=== PATIENT | female | born 1955 | race Caucasian/White ===

== ENCOUNTER → 2016-08-25 | Day surgery (SDC) | payer OTHER ==
[2016-08-17 11:21] VITALS: Ht 162.6 cm; Wt 65.9 kg
[~2016-08-25] VITALS: Ht 162.6 cm; Wt 65.9 kg
[~2016-08-25] MED LIST: ATOR10TA82 PO; ATROPINE SULFATE 0.1 MG/ML 5ML SYR IV PRN; CLON1TAB3 PO; ENOX60IN SQ; EpHEDrine SULFATE INJ 50 MG/ML AMP IV PRN; LEVO50TA6 PO; LIDOCAINE HCL 2% 2 ML VIAL (20MG/ML) ONE; PANT40TA PO; PARO1TAB27 PO; PROPOFOL IV EMULSION 10 MG/ML 20 ML VIAL IV ONE; SODIUM CHLORIDE 0.9% 500ML 500 ML IV ONE; SOLI10TA2 PO; WARF5TAB90 PO
--- NOTE | 2016-08-25 10:35 | Endo History and Physical ---
History & Physical Date of Service: Aug 25, 2016. Chief Complaint: Screening Referring Physician: Dr. Temitope Manjarrez History of Present Illness 60 yo presenting for colonoscopy for rectal bleeding and screening On coumadin, bridged with lovenox Past Surgical History Hx Cardiac Surgery: No Hx Internal Defibrillator: Yes (PACER/DEFIB 2013 [employer]) Hx Pacemaker: Yes Hx Abdominal Surgery: Yes (TUBAL LIGATION, LAPAROSCOPY LYSIS OF ADHESIONS) Hx of Implantable Prosthesis: No Hx Post-Op Nausea and Vomiting: No Hx Cancer Surgery: No Hx Thoracic Surgery: No Hx Orthopedic: No Hx Urinary Tract Surgery: No Family History None Social History Smoking Status: Former Smoker Hx Substance Use: No Hx Alcohol Use: No Allergies Coded Allergies: No Known Allergies (Verified , 08/25/16) Current Medications Reported Home Medications Medications Dose Route/Sig Max Daily Dose Days Date Category Dose Instructions Lovenox (Enoxaparin Sodium) 60 Mg/0.6 Ml Inj 60 Mg SQ Q12H 08/25/16 Reported Coumadin (Warfarin Sodium) 5 Mg Tab 5 Mg PO HS 08/17/16 Reported HOLD PRIOR AND BRIDGE WITH LOVENOX Vesicare (Solifenacin) 10 Mg Tab 10 Mg PO QAM 08/17/16 Reported Lipitor (Atorvastatin Calcium) 10 Mg Tab 10 Mg PO QAM 08/17/16 Reported Paxil (Paroxetine HCl) 20 Mg Tab 20 Mg PO QAM 08/17/16 Reported Klonopin (Clonazepam) 1 Mg Tab 1 Mg PO QAM 08/17/16 Reported Levothyroxine Sodium 50 Mcg Tab 1.5 Tab PO QAM 08/17/16 Reported Protonix (Pantoprazole Sodium) 40 Mg Tab 40 Mg PO QAM 08/17/16 Reported Vital Signs Weight (Kilograms): 65.91 Height (Feet): 5 Height (Inches): 4 Date Time Temp Pulse Resp B/P Pulse Ox O2 Delivery O2 Flow Rate FiO2 08/25/16 09:36 36.7 90 16 106/64 97 Room Air Physical Exam General Appearance: WD/WN, no apparent distress Respiratory/Chest: Respiratory effort: no dyspnea Auscultation: breath sounds normal, CTA except as noted Cardiovascular: Apical Impulse: not displaced Heart Auscultation: RRR, normal S1, normal S2 Abdomen: Inspection & Palpation: soft, non-distended, no tenderness, guarding & rebound Assessment and Plan 60 yo presenting for colonoscopy for screening and rectal bleeding
--- NOTE | 2016-08-25 11:21 | Discharge Instructions ---
Endoscopy Patient Instructions Date / Procedure(s) Performed Aug 25, 2016. Colonoscopy Allergy Information Coded Allergies: No Known Allergies (Verified , 08/25/16) Discharge Date / Findings Aug 25, 2016. Small internal hemorrhoids, otherwise normal. Medication Instructions Stopped Medication(s): Patient was told to stop her coumadin. Had it last last monday. Provider Instructions Activity Restrictions - No exercising or heavy lifting for 24 hours. - Do not drink alcohol the day of the procedure. - Do not drive a car or operate machinery until the day after the procedure. - Do not make any important decisions or sign important papers in 24 hours after the procedure. Following Day: - Return to full activity which may include returning to work/school. Diet Start your diet with liquids and light foods (jello, soup, juice, toast). Then eat your usual diet if not nauseated. Treatment For Common After Affects For mild abdominal pain, bloating, or excessive gas: - Rest - Eat lightly - Lie on right side Follow-Up Information Follow-up with Dr. Temitope Manjarrez as scheduled Anesthesia Information What You Should Know You have had a procedure that required some medicine to reduce anxiety and discomfort. This treatment is called moderate sedation. After receiving the treatment, you may be sleepy, but you will be able to breathe on your own. The effects of the treatment may last for several hours. Follow these instructions along with Activity/Diet recommendations noted above: * Do NOT do anything where dizziness or clumsiness would be dangerous. * Rest quietly at home today, then you can be up and about tomorrow. * Have a responsible person stay with you the rest of today. * You may have had an I.V. today. If so, you may take the dressing off later today. Recommendations Call your doctor if: * Trouble breathing * Continuous vomiting for more than 24 hours * Temperature above 101 degrees * Severe abdominal pain or bloating * Pain not relieved by pain medicine ordered * There is increased drainage or redness from any incision * A large amount of rectal bleeding greater than 2-3 tablespoons. (If you had a polyp/s removed or have hemorrhoids, a small amount of blood - from the rectum is to be expected.) * You have any unanswered questions or concerns. IN THE EVENT OF A SERIOUS EMERGENCY, GO TO THE NEAREST EMERGENCY ROOM Your discharge instructions were prepared by provider Jaya Garcia. Patient Instructions Signature Page Ellen Jann Patient (or Guardian) Signature/Date: I have read and understand the instructions given to me by my caregivers. Caregiver/RN/Doctor Signature/Date: The above-named patient and/or guardian has received patient instructions on this date. + Original Patient Signature Page (only) stays with chart. Please make copy for patient.
--- NOTE | 2016-08-25 11:23 | Anesthesiology Progress Note ---
Anesthesia Post Op Note Date & Time Aug 25, 2016 at 11:22 Vital Signs Pain Intensity: 0 Vital Signs Past 12 Hours Date Time Temp Pulse Resp B/P Pulse Ox O2 Delivery O2 Flow Rate FiO2 08/25/16 11:05 73 20 102/63 98 Room Air 08/25/16 09:36 36.7 90 16 106/64 97 Room Air Notes Mental Status: alert / awake / arousable, participated in evaluation Pt Amnestic to Procedure: Yes Nausea / Vomiting: adequately controlled Pain: adequately controlled Airway Patency, RR, SpO2: stable & adequate BP & HR: stable & adequate Hydration State: stable & adequate Anesthetic Complications: no major complications apparent
--- NOTE | 2016-08-25 11:25 | GI REPORT ---
Procedure Date: 08/25/2016 10:19 AM Procedure: Colonoscopy Indications: Screening for colorectal malignant neoplasm, Incidental - Rectal bleeding Medicines: General Anesthesia Complications: No immediate complications. Estimated blood loss: None. Estimated Blood Loss: Estimated blood loss: none. Procedure: Pre-Anesthesia Assessment: - Pre-Anesthesia Assessment: - Prior to the procedure, a History and Physical was performed, and patient medications, allergies and sensitivities were reviewed. The patient's tolerance of previous anesthesia was reviewed. Please see [employer] for complete details. - The risks and benefits of the procedure and the sedation options and risks were discussed with the patient. All questions were answered and informed consent was obtained. - Patient identification and proposed procedure were verified prior to the procedure by the physician and the nurse. The procedure was verified in the pre-procedure area in the procedure room. After obtaining informed consent, the endoscope was passed carefully and meticuously under direct vision and only advanced when the lumen was clearly identified, C02 insuflation was utilized throughout the entirity of the procedure. Throughout the procedure, the patient's blood pressure, pulse, and oxygen saturations were monitored continuously. After I obtained informed consent, the scope was passed under direct vision. Throughout the procedure, the patient's blood pressure, pulse, and oxygen saturations were monitored continuously. The scope was introduced through the anus and advanced to the cecum, identified by appendiceal orifice and ileocecal valve. The colonoscopy was performed without difficulty. The patient tolerated the procedure well. The quality of the bowel preparation was good. Findings: Internal hemorrhoids were found during retroflexion. The terminal ileum appeared normal. The exam was otherwise without abnormality on direct and retroflexion views. Impression: - Internal hemorrhoids. - The examined portion of the ileum was normal. - The examination was otherwise normal on direct and retroflexion views. - No specimens collected. Recommendation: - Discharge patient to home (with escort). - Repeat colonoscopy in 10 years for screening purposes. - Return to referring physician as previously scheduled. Jaya Garcia MD 08/25/2016 11:25:24 AM This report has been signed electronically. Note Initiated On: 08/25/2016 10:19 AM I attest to the content of the Intraoperative Record and orders documented therein, exceptions below
[2016-08-25 11:37] VITALS: BP 101/76; PULSE 70; O2SAT 100
== END | disposition home or self-care (01) ==
LOC: C.GI 09:17
PROVIDERS: ATTEND Internal Medicine
DX: Z12.11 Encounter for screening for malignant neoplasm of colon (principal); K64.8 Other hemorrhoids; Z79.01 Long term (current) use of anticoagulants; Z98.51 Tubal ligation status; Z87.891 Personal history of nicotine dependence